=== PATIENT | male | born 1975 | race Caucasian/White ===

== ENCOUNTER 2019-03-12 14:55 | Inpatient (IN) | payer MEDICARE, OTHER ==
[~2019-03-12] VITALS: Ht 172.7 cm; Wt 115.0 kg
[2019-03-12 15:45] VITALS: BP 109/69; PULSE 94; RESP 18
[2019-03-12] MEDS ORDERED: LACTULOSE 30ML CUP PO PRN (16:00)
[2019-03-12] MEDS ORDERED: BISACODYL 10 MG SUPP PR PRN (16:00)
[2019-03-12] MEDS ORDERED: PENDING SANTYL ORDER FOR WOUND CARE XX PRN (16:00)
[2019-03-12] MEDS: ACETAMINOPHEN 325 MG TAB PO PRN (18:57)
[2019-03-12 20:00] VITALS: BP 118/69; PULSE 70; RESP 18
[2019-03-12] MEDS: DOCUSATE SODIUM 100 MG CAP PO SCH (21:00)
[2019-03-12] MEDS: ATORVASTATIN 80 MG TAB PO SCH (21:09)
[2019-03-12] MEDS: LEVETIRACETAM 500 MG TAB PO SCH (21:09)
[2019-03-12] MEDS: SODIUM CHLORIDE 1 GM TAB PO SCH (21:09)
[2019-03-13 02:00] VITALS: BP 116/71; PULSE 73; RESP 18
[2019-03-13] MEDS: LEVOTHYROXINE 25 MCG TAB PO SCH (05:26)
[2019-03-13 07:41] VITALS: BP 105/79; PULSE 96; RESP 19
[2019-03-13] MEDS: DOCUSATE SODIUM 100 MG CAP PO SCH ×2 (09:00→20:36)
[2019-03-13] MEDS: VENLAFAXINE 25 MG TAB PO SCH (09:00)
[2019-03-13] MEDS: LISINOPRIL 10 MG TAB PO SCH (09:00)
[2019-03-13] MEDS: NIFEdipine (XL) 30 MG TAB PO SCH (09:00)
[2019-03-13] MEDS: SENNA TAB PO SCH (09:45)
[2019-03-13] MEDS: LEVETIRACETAM 500 MG TAB PO SCH ×2 (09:45→20:36)
[2019-03-13] MEDS: ARIPIPRAZOLE 5 MG TAB PO SCH (09:46)
[2019-03-13] MEDS: SODIUM CHLORIDE 1 GM TAB PO SCH ×2 (09:46→20:36)
[2019-03-13] MEDS: ACETAMINOPHEN 325 MG TAB PO PRN ×2 (09:47→17:41)
[2019-03-13] MEDS: FAMOTIDINE 20 MG TAB PO SCH (09:49)
[2019-03-13 14:19] VITALS: BP 111/65; PULSE 80; RESP 18
[2019-03-13 19:24] VITALS: BP 104/73; PULSE 77; RESP 18
[2019-03-13] MEDS: ATORVASTATIN 80 MG TAB PO SCH (20:36)
[2019-03-14] MEDS: ACETAMINOPHEN 325 MG TAB PO PRN ×2 (00:23→09:53)
[2019-03-14 01:34] VITALS: BP 117/74; PULSE 100; RESP 18
[2019-03-14 02:00] VITALS: BP 112/68; PULSE 89; RESP 18
[2019-03-14] MEDS ORDERED: ONDANSETRON 4 MG INJ IV PRN (03:00)
[2019-03-14] MEDS: LEVOTHYROXINE 25 MCG TAB PO SCH ×2 (06:16→09:51)
[2019-03-14 08:21] VITALS: BP 113/67; PULSE 88; RESP 17
[2019-03-14] MEDS: FAMOTIDINE 20 MG TAB PO SCH (09:50)
[2019-03-14] MEDS: VENLAFAXINE 25 MG TAB PO SCH (09:50)
[2019-03-14] MEDS: SODIUM CHLORIDE 1 GM TAB PO SCH ×2 (09:50→20:53)
[2019-03-14] MEDS: ARIPIPRAZOLE 5 MG TAB PO SCH (09:50)
[2019-03-14] MEDS: LEVETIRACETAM 500 MG TAB PO SCH ×2 (09:51→20:53)
[2019-03-14] MEDS: DOCUSATE SODIUM 100 MG CAP PO SCH ×2 (09:51→20:59)
[2019-03-14] MEDS: SENNA TAB PO SCH (09:51)
[2019-03-14] MEDS: NIFEdipine (XL) 30 MG TAB PO SCH (09:52)
[2019-03-14] MEDS: LISINOPRIL 10 MG TAB PO SCH (09:52)
[2019-03-14 13:42] VITALS: BP 105/69; PULSE 72; RESP 18
[2019-03-14 20:00] VITALS: BP 109/76; PULSE 72; RESP 18
[2019-03-14] MEDS: ONDANSETRON (ODT) 4 MG TAB ODT PRN (20:53)
[2019-03-14] MEDS: ATORVASTATIN 80 MG TAB PO SCH (20:53)
[2019-03-15] MEDS: ACETAMINOPHEN 325 MG TAB PO PRN ×2 (01:39→16:13)
[2019-03-15] MEDS: LEVOTHYROXINE 25 MCG TAB PO SCH (06:21)
[2019-03-15 07:00] VITALS: BP 115/68; PULSE 101; RESP 18
[2019-03-15] MEDS: ARIPIPRAZOLE 5 MG TAB PO SCH (09:12)
[2019-03-15] MEDS: VENLAFAXINE 25 MG TAB PO SCH (09:14)
[2019-03-15] MEDS: DOCUSATE SODIUM 100 MG CAP PO SCH ×2 (09:15→20:57)
[2019-03-15] MEDS: SENNA TAB PO SCH (09:15)
[2019-03-15] MEDS: LEVETIRACETAM 500 MG TAB PO SCH ×2 (09:15→20:57)
[2019-03-15] MEDS: SODIUM CHLORIDE 1 GM TAB PO SCH ×2 (09:15→20:57)
[2019-03-15] MEDS: FAMOTIDINE 20 MG TAB PO SCH (09:15)
[2019-03-15] MEDS: NIFEdipine (XL) 30 MG TAB PO SCH (09:17)
[2019-03-15] MEDS: LISINOPRIL 10 MG TAB PO SCH (09:17)
[2019-03-15 14:00] VITALS: BP 106/60; PULSE 102; RESP 18
[2019-03-15] MEDS: ONDANSETRON (ODT) 4 MG TAB ODT PRN (16:13)
[2019-03-15 20:00] VITALS: BP 116/76; PULSE 102; RESP 18
[2019-03-15] MEDS: ATORVASTATIN 80 MG TAB PO SCH (20:57)
[2019-03-16] MEDS: ACETAMINOPHEN 325 MG TAB PO PRN ×3 (00:36→22:49)
[2019-03-16 02:00] VITALS: BP 103/71; PULSE 91; RESP 17
[2019-03-16] MEDS: LEVOTHYROXINE 25 MCG TAB PO SCH (06:35)
[2019-03-16 07:00] VITALS: BP 102/68; PULSE 105; RESP 18
[2019-03-16] MEDS: VENLAFAXINE 25 MG TAB PO SCH (09:59)
[2019-03-16] MEDS: SODIUM CHLORIDE 1 GM TAB PO SCH ×2 (09:59→20:07)
[2019-03-16] MEDS: ARIPIPRAZOLE 5 MG TAB PO SCH (09:59)
[2019-03-16] MEDS: DOCUSATE SODIUM 100 MG CAP PO SCH ×2 (10:00→20:07)
[2019-03-16] MEDS: SENNA TAB PO SCH (10:00)
[2019-03-16] MEDS: LEVETIRACETAM 500 MG TAB PO SCH ×2 (10:00→20:07)
[2019-03-16] MEDS: FAMOTIDINE 20 MG TAB PO SCH (10:00)
[2019-03-16] MEDS: LISINOPRIL 10 MG TAB PO SCH (10:01)
[2019-03-16] MEDS: NIFEdipine (XL) 30 MG TAB PO SCH (10:01)
[2019-03-16 14:00] VITALS: BP 113/78; PULSE 105; RESP 18
[2019-03-16 20:00] VITALS: BP 113/72; PULSE 90; RESP 18
[2019-03-16] MEDS: ATORVASTATIN 80 MG TAB PO SCH (20:07)
[2019-03-16] MEDS: MELATONIN 5 MG TABLET PO PRN (22:49)
[2019-03-17 02:00] VITALS: BP 110/70; PULSE 77; RESP 18
[2019-03-17] MEDS: LEVOTHYROXINE 25 MCG TAB PO SCH (06:26)
[2019-03-17 07:30] VITALS: BP 139/65; PULSE 80; RESP 18
[2019-03-17] MEDS: LEVETIRACETAM 500 MG TAB PO SCH ×2 (09:02→21:13)
[2019-03-17] MEDS: SENNA TAB PO SCH (09:02)
[2019-03-17] MEDS: VENLAFAXINE 25 MG TAB PO SCH (09:02)
[2019-03-17] MEDS: DOCUSATE SODIUM 100 MG CAP PO SCH ×2 (09:02→21:13)
[2019-03-17] MEDS: FAMOTIDINE 20 MG TAB PO SCH (09:03)
[2019-03-17] MEDS: SODIUM CHLORIDE 1 GM TAB PO SCH ×2 (09:03→21:12)
[2019-03-17] MEDS: LISINOPRIL 10 MG TAB PO SCH (09:03)
[2019-03-17] MEDS: NIFEdipine (XL) 30 MG TAB PO SCH (09:03)
[2019-03-17] MEDS: ARIPIPRAZOLE 10 MG TAB PO SCH (10:42)
[2019-03-17 14:00] VITALS: BP 106/68; PULSE 89; RESP 18
[2019-03-17] MEDS: ACETAMINOPHEN 325 MG TAB PO PRN (15:36)
[2019-03-17 20:00] VITALS: BP 122/68; PULSE 102; RESP 18
[2019-03-17] MEDS: ATORVASTATIN 80 MG TAB PO SCH (21:13)
[2019-03-18 02:00] VITALS: BP 119/63; PULSE 92; RESP 18
[2019-03-18] MEDS: LEVOTHYROXINE 25 MCG TAB PO SCH (05:57)
[2019-03-18 07:30] VITALS: BP 100/62; PULSE 92; RESP 18
[2019-03-18] MEDS: SENNA TAB PO SCH (08:13)
[2019-03-18] MEDS: LISINOPRIL 10 MG TAB PO SCH (08:14)
[2019-03-18] MEDS: DOCUSATE SODIUM 100 MG CAP PO SCH ×2 (08:14→20:43)
[2019-03-18] MEDS: SODIUM CHLORIDE 1 GM TAB PO SCH ×2 (08:15→21:00)
[2019-03-18] MEDS: ARIPIPRAZOLE 10 MG TAB PO SCH (08:15)
[2019-03-18] MEDS: LEVETIRACETAM 500 MG TAB PO SCH ×2 (08:15→20:43)
[2019-03-18] MEDS: NIFEdipine (XL) 30 MG TAB PO SCH (08:15)
[2019-03-18] MEDS: VENLAFAXINE 25 MG TAB PO SCH (08:15)
[2019-03-18] MEDS: FAMOTIDINE 20 MG TAB PO SCH (08:16)
[2019-03-18 14:00] VITALS: BP 99/67; PULSE 103; RESP 20
[2019-03-18 19:14] VITALS: BP 106/65; PULSE 100; RESP 18
[2019-03-18] MEDS: MELATONIN 5 MG TABLET PO PRN (20:43)
[2019-03-18] MEDS: ATORVASTATIN 80 MG TAB PO SCH (20:43)
[2019-03-18] MEDS: ACETAMINOPHEN 325 MG TAB PO PRN (20:44)
[2019-03-19 02:00] VITALS: BP 111/61; PULSE 97; RESP 18
[2019-03-19] MEDS: LEVOTHYROXINE 25 MCG TAB PO SCH (05:37)
[2019-03-19 07:00] VITALS: BP 112/76; PULSE 98; RESP 18
[2019-03-19 08:30] VITALS: BP 101/70; PULSE 88
[2019-03-19] MEDS: ARIPIPRAZOLE 10 MG TAB PO SCH (08:31)
[2019-03-19] MEDS: SODIUM CHLORIDE 1 GM TAB PO SCH ×2 (08:31→21:19)
[2019-03-19] MEDS: LEVETIRACETAM 500 MG TAB PO SCH ×2 (08:32→21:19)
[2019-03-19] MEDS: SENNA TAB PO SCH (08:32)
[2019-03-19] MEDS: FAMOTIDINE 20 MG TAB PO SCH (08:32)
[2019-03-19] MEDS: DOCUSATE SODIUM 100 MG CAP PO SCH ×2 (08:32→21:19)
[2019-03-19] MEDS: VENLAFAXINE 25 MG TAB PO SCH (08:32)
[2019-03-19] MEDS: ACETAMINOPHEN 325 MG TAB PO PRN (10:56)
[2019-03-19] MEDS: NIFEdipine (XL) 30 MG TAB PO SCH (13:31)
[2019-03-19] MEDS: LISINOPRIL 10 MG TAB PO SCH (13:32)
[2019-03-19 14:00] VITALS: BP 103/69; PULSE 88; RESP 18
[2019-03-19 20:03] VITALS: BP 123/83; PULSE 95; RESP 18
[2019-03-19] MEDS: ATORVASTATIN 80 MG TAB PO SCH (21:19)
[2019-03-20 02:30] VITALS: BP 99/61; PULSE 89; RESP 18
[2019-03-20] MEDS: LEVOTHYROXINE 25 MCG TAB PO SCH (06:54)
[2019-03-20 08:00] VITALS: BP 103/67; PULSE 90; RESP 20
[2019-03-20] MEDS: NIFEdipine (XL) 30 MG TAB PO SCH (09:00)
[2019-03-20] MEDS: LISINOPRIL 10 MG TAB PO SCH (09:00)
[2019-03-20] MEDS: ARIPIPRAZOLE 10 MG TAB PO SCH (09:50)
[2019-03-20] MEDS: SODIUM CHLORIDE 1 GM TAB PO SCH ×2 (09:51→20:48)
[2019-03-20] MEDS: VENLAFAXINE 25 MG TAB PO SCH (09:52)
[2019-03-20] MEDS: SENNA TAB PO SCH (09:53)
[2019-03-20] MEDS: FAMOTIDINE 20 MG TAB PO SCH (09:53)
[2019-03-20] MEDS: LEVETIRACETAM 500 MG TAB PO SCH ×2 (09:54→20:48)
[2019-03-20] MEDS: DOCUSATE SODIUM 100 MG CAP PO SCH ×2 (09:55→20:48)
[2019-03-20 14:00] VITALS: BP 105/72; PULSE 94; RESP 20
[2019-03-20 19:12] VITALS: BP 115/71; PULSE 96; RESP 18
[2019-03-20] MEDS: ATORVASTATIN 80 MG TAB PO SCH (20:48)
[2019-03-21 02:00] VITALS: BP_SYST 115; BP_DIAS 110; BP_DIAS 77; PULSE 93; RESP 18
[2019-03-21] MEDS: LEVOTHYROXINE 25 MCG TAB PO SCH (06:38)
[2019-03-21 07:30] VITALS: BP 113/83; PULSE 89; RESP 18
[2019-03-21] MEDS: SENNA TAB PO SCH (08:37)
[2019-03-21] MEDS: FAMOTIDINE 20 MG TAB PO SCH (08:37)
[2019-03-21] MEDS: ARIPIPRAZOLE 10 MG TAB PO SCH (08:37)
[2019-03-21] MEDS: VENLAFAXINE 25 MG TAB PO SCH (08:38)
[2019-03-21] MEDS: NIFEdipine (XL) 30 MG TAB PO SCH (08:38)
[2019-03-21] MEDS: LISINOPRIL 10 MG TAB PO SCH (08:38)
[2019-03-21] MEDS: LEVETIRACETAM 500 MG TAB PO SCH ×2 (08:38→20:34)
[2019-03-21] MEDS: DOCUSATE SODIUM 100 MG CAP PO SCH ×2 (08:38→20:34)
[2019-03-21 14:00] VITALS: BP 118/74; PULSE 88; RESP 18
[2019-03-21 19:20] VITALS: BP 105/72; PULSE 85; RESP 18
[2019-03-21] MEDS: ACETAMINOPHEN 325 MG TAB PO PRN (20:34)
[2019-03-21] MEDS: ATORVASTATIN 80 MG TAB PO SCH (20:34)
[2019-03-22 02:00] VITALS: BP 114/75; PULSE 89; RESP 18
[2019-03-22] MEDS: LEVOTHYROXINE 25 MCG TAB PO SCH (06:19)
[2019-03-22 08:34] VITALS: BP 106/72; PULSE 88; RESP 18
[2019-03-22] MEDS: MAGNESIUM HYDROXIDE 30ML CUP PO PRN (08:41)
[2019-03-22] MEDS: ARIPIPRAZOLE 10 MG TAB PO SCH (08:42)
[2019-03-22] MEDS: DOCUSATE SODIUM 100 MG CAP PO SCH ×2 (08:42→20:04)
[2019-03-22] MEDS: LEVETIRACETAM 500 MG TAB PO SCH ×2 (08:42→20:04)
[2019-03-22] MEDS: NIFEdipine (XL) 30 MG TAB PO SCH (08:42)
[2019-03-22] MEDS: FAMOTIDINE 20 MG TAB PO SCH (08:42)
[2019-03-22] MEDS: VENLAFAXINE 25 MG TAB PO SCH (08:42)
[2019-03-22] MEDS: LISINOPRIL 10 MG TAB PO SCH (08:42)
[2019-03-22] MEDS: SENNA TAB PO SCH (08:44)
[2019-03-22 14:00] VITALS: BP 103/75; PULSE 90; RESP 18
[2019-03-22] MEDS: ACETAMINOPHEN 325 MG TAB PO PRN (15:14)
[2019-03-22 20:00] VITALS: BP 113/74; PULSE 95; RESP 18
[2019-03-22] MEDS: ATORVASTATIN 80 MG TAB PO SCH (20:04)
[2019-03-23 02:09] VITALS: BP 118/78; PULSE 89; RESP 18
[2019-03-23] MEDS: LEVOTHYROXINE 25 MCG TAB PO SCH (05:40)
[2019-03-23 07:30] VITALS: BP 98/57; PULSE 87; RESP 20
[2019-03-23] MEDS: NIFEdipine (XL) 30 MG TAB PO SCH (09:00)
[2019-03-23] MEDS: LISINOPRIL 10 MG TAB PO SCH (09:00)
[2019-03-23] MEDS: LEVETIRACETAM 500 MG TAB PO SCH ×2 (09:41→20:26)
[2019-03-23] MEDS: ARIPIPRAZOLE 10 MG TAB PO SCH (09:41)
[2019-03-23] MEDS: VENLAFAXINE 25 MG TAB PO SCH (09:41)
[2019-03-23] MEDS: SENNA TAB PO SCH (09:42)
[2019-03-23] MEDS: FAMOTIDINE 20 MG TAB PO SCH (09:42)
[2019-03-23] MEDS: DOCUSATE SODIUM 100 MG CAP PO SCH ×2 (09:44→20:26)
[2019-03-23 14:00] VITALS: BP 131/81; PULSE 112; RESP 20
[2019-03-23 15:00] VITALS: BP 130/80; PULSE 90; RESP 20
[2019-03-23] MEDS: NEOMYC/POLYMYX/BACIT 30 GM OINT TOP SCH ×2 (15:36→20:28)
[2019-03-23 20:00] VITALS: BP 111/71; PULSE 96; RESP 18
[2019-03-23] MEDS: ATORVASTATIN 80 MG TAB PO SCH (20:26)
[2019-03-23] MEDS: ACETAMINOPHEN 325 MG TAB PO PRN (20:27)
[2019-03-24 01:34] VITALS: BP 99/65; PULSE 69; RESP 18
[2019-03-24] MEDS: LEVOTHYROXINE 25 MCG TAB PO SCH (06:31)
[2019-03-24 08:15] VITALS: BP 98/61; PULSE 85; RESP 18
[2019-03-24] MEDS: NIFEdipine (XL) 30 MG TAB PO SCH (09:00)
[2019-03-24] MEDS: LISINOPRIL 10 MG TAB PO SCH (09:00)
[2019-03-24] MEDS: SENNA TAB PO SCH (09:45)
[2019-03-24] MEDS: LEVETIRACETAM 500 MG TAB PO SCH ×2 (09:46→20:22)
[2019-03-24] MEDS: VENLAFAXINE 25 MG TAB PO SCH (09:46)
[2019-03-24] MEDS: DOCUSATE SODIUM 100 MG CAP PO SCH ×2 (09:46→20:22)
[2019-03-24] MEDS: FAMOTIDINE 20 MG TAB PO SCH (09:46)
[2019-03-24] MEDS: ARIPIPRAZOLE 10 MG TAB PO SCH (09:46)
[2019-03-24] MEDS: NEOMYC/POLYMYX/BACIT 30 GM OINT TOP SCH ×2 (09:47→20:22)
[2019-03-24 14:05] VITALS: BP 117/75; PULSE 96; RESP 18
[2019-03-24 20:00] VITALS: BP 122/80; PULSE 93; RESP 18
[2019-03-24] MEDS: ATORVASTATIN 80 MG TAB PO SCH (20:22)
[2019-03-25 02:35] VITALS: BP 126/73; PULSE 82; RESP 18
[2019-03-25] MEDS: LEVOTHYROXINE 25 MCG TAB PO SCH (06:54)
[2019-03-25 07:00] VITALS: BP 103/65; PULSE 82; RESP 18
[2019-03-25] MEDS: SENNA TAB PO SCH (08:20)
[2019-03-25] MEDS: LEVETIRACETAM 500 MG TAB PO SCH ×2 (08:20→21:33)
[2019-03-25] MEDS: FAMOTIDINE 20 MG TAB PO SCH (08:21)
[2019-03-25] MEDS: DOCUSATE SODIUM 100 MG CAP PO SCH ×2 (08:21→21:33)
[2019-03-25] MEDS: VENLAFAXINE 25 MG TAB PO SCH (08:21)
[2019-03-25] MEDS: ARIPIPRAZOLE 10 MG TAB PO SCH (08:21)
[2019-03-25] MEDS: LISINOPRIL 10 MG TAB PO SCH (08:23)
[2019-03-25] MEDS: MAGNESIUM HYDROXIDE 30ML CUP PO PRN (08:23)
[2019-03-25] MEDS: NIFEdipine (XL) 30 MG TAB PO SCH (08:23)
[2019-03-25] MEDS: NEOMYC/POLYMYX/BACIT 30 GM OINT TOP SCH ×2 (08:24→21:34)
[2019-03-25 14:00] VITALS: BP 106/65; PULSE 99; RESP 18
[2019-03-25] MEDS: ACETAMINOPHEN 325 MG TAB PO PRN (17:31)
[2019-03-25 19:24] VITALS: BP 115/63; PULSE 92; RESP 18
[2019-03-25] MEDS: ATORVASTATIN 80 MG TAB PO SCH (21:33)
[2019-03-26 02:17] VITALS: BP 112/76; PULSE 86; RESP 18
[2019-03-26] MEDS: LEVOTHYROXINE 25 MCG TAB PO SCH (06:50)
[2019-03-26 07:00] VITALS: BP 126/82; PULSE 103; RESP 18
[2019-03-26] MEDS: ARIPIPRAZOLE 10 MG TAB PO SCH (08:35)
[2019-03-26] MEDS: SENNA TAB PO SCH (08:35)
[2019-03-26] MEDS: DOCUSATE SODIUM 100 MG CAP PO SCH (08:36)
[2019-03-26] MEDS: LEVETIRACETAM 500 MG TAB PO SCH (08:36)
[2019-03-26] MEDS: LISINOPRIL 10 MG TAB PO SCH (08:36)
[2019-03-26] MEDS: NIFEdipine (XL) 30 MG TAB PO SCH (08:36)
[2019-03-26] MEDS: FAMOTIDINE 20 MG TAB PO SCH (08:36)
[2019-03-26] MEDS: VENLAFAXINE 25 MG TAB PO SCH (11:46)
== END 2019-03-26 13:30 | disposition home health service (06) | DRG 949 ==
LOC: VRC 14:55
PROVIDERS: ADMIT Physical Medicine & Rehabilitation; ATTEND Internal Medicine Nephrology
DX: S06.5X9D Traumatic subdural hemorrhage with loss of consciousness of unspecified duration, subsequent encounter (principal); G92 Toxic encephalopathy; E22.2 Syndrome of inappropriate secretion of antidiuretic hormone; E87.1 Hypo-osmolality and hyponatremia; F31.10 Bipolar disorder, current episode manic without psychotic features, unspecified; X58.XXXD Exposure to other specified factors, subsequent encounter; E11.9 Type 2 diabetes mellitus without complications; F31.9 Bipolar disorder, unspecified; E78.5 Hyperlipidemia, unspecified; D64.9 Anemia, unspecified; K59.00 Constipation, unspecified; V89.2XXD Person injured in unspecified motor-vehicle accident, traffic, subsequent encounter; G31.84 Mild cognitive impairment of uncertain or unknown etiology; Z74.09 Other reduced mobility; F06.8 Other specified mental disorders due to known physiological condition
CPT/HCPCS: 80048; 80053; 81003; 83735; 84100; 85025; 87081; 87086; 92507; 92523; 97110; 97112; 97116; 97163; 97167; 97530; 97535; 97542; J0400